=== PATIENT | female | born 1930 | race Two or more races ===

== ENCOUNTER → 2016-10-16 | Outpatient (CLI) | payer MEDICARE, MEDICAID ==
[~2016-10-16] MED LIST: ACET1TAB49 PO; ALEN5TAB8 PO; ALPR0.254 PO; ATEN50TA PO; ATOR10TA23 PO; FERR28TA PO; LEVO100T87 PO; LOS; LOSARTAN
--- NOTE | 2016-10-16 11:18 | RADRPT ---
PROCEDURE: XR Left hip and pelvis. CLINICAL INDICATION: Left hip pain and pelvic pain. TECHNIQUE: 3 views. Frontal pelvis. Frontal and lateral left hip. COMPARISON: None. FINDINGS: There are bilateral total hip arthroplasties. There is a left hip lateral plate and cerclage wires. There is no fracture, dislocation, or loosening. There are degenerative changes of the lower lumbar spine. There is no lytic or blastic lesion. Vascular calcifications are present consistent with atherosclerosis. IMPRESSION: 1. Satisfactory postoperative appearance of both hips. 2. Degenerative changes of the lower lumbar spine. 3. Atherosclerosis. RPTAT: QQ .Graham Franco MD, MD Date Time Electronically viewed and signed by .Grhaam Franco MD, MD on 10/16/2016 11:17 .R/
== END | disposition home or self-care (01) ==
LOC: HKI 09:03
PROVIDERS: ATTEND Orthopaedic Surgery
DX: Z47.1 Aftercare following joint replacement surgery (principal); Z96.643 Presence of artificial hip joint, bilateral; M25.552 Pain in left hip; R10.2 Pelvic and perineal pain; I70.90 Unspecified atherosclerosis
CPT/HCPCS: 73502